=== PATIENT | male | born 1975 | race Asian ===

== ENCOUNTER 2021-04-13 10:16 | Emergency (ER) | payer OTHER, SELFPAY ==
--- NOTE | ~2021-04-13 | XR_ITS ---
EXAMINATION: XR chest 2V DATE: 04/13/2021 10:56 INDICATION: Dyspnea. TECHNIQUE: Frontal and lateral views of the chest were obtained on 3 radiographs. COMPARISON: None. FINDINGS: The chest demonstrates clear lungs without pneumonia, pleural effusion, or pneumothorax. Th e heart size is normal. IMPRESSION: 1. No acute cardiopulmonary disease. Reviewed, dictated and finalized at location B.
[2021-04-13 10:20] VITALS: BP 92/42; PULSE 100; RESP 24; TEMP 37.1; O2SAT 100
--- NOTE | 2021-04-13 10:23 | ED.ALLEREA ---
HPI - Allergic Reaction General Chief complaint: Allergic Reaction Stated complaint: ambulance Time Seen by Provider: 04/13/21 10:19 Source: patient and EMS Mode of arrival: EMS Limitations: no limitations History of Present Illness HPI narrative: 45-year-old previously well man brought to the emergency department by EMS after he had difficulty breathing, mouth and throat swelling, rash and itching after being stung by a wasp. This recurred within the last 30 minutes. He denies prior similar reactions however his right hand swelled up the last time he was stung by wasp. complaint: allergic reaction, hives and facial swelling Onset (ago): minute(s) (30) Exposure: insect bite (Wasp sting) Symptoms: rash, itching, facial swelling, lip swelling and difficulty breathing Severity: severe Treatment prior to arrival: epinephrine (EpiPen administered by EMS @1008) Previous Allergic Reaction History: none Related Data Allergies Allergy/AdvReac Type Severity Reaction Status Date / Time venom-wasp Allergy Hives Verified 04/13/21 10:28 Review of Systems Review of Systems: All systems reviewed & are unremarkable except as noted in HPI and below Constitutional: Constitutional: Denies chills and Denies fever(s) Eyes: Eyes: Denies change in vision and Denies photophobia ENT: Denies nasal congestion and Denies sore throat Cardiovascular: Cardiovascular: Denies chest pain and Denies radiating jaw, neck or arm pain Respiratory: Respiratory: Denies cough and Reports dyspnea Gastrointestinal: Gastrointestinal: Denies abdominal pain, Denies nausea and Denies vomiting Musculoskeletal: Musculoskeletal: Denies arthralgias and Denies joint swelling Integumentary/Breasts: Skin/Breast: Reports pruritus, Reports erythema and Reports rash Neurologic: Denies vertigo, Denies dizziness and Denies syncope Hematologic/Lymphatic: Hematologic/Lymphatic: Denies easy bleeding and Denies easy bruising Allergic/Immunologic: Allergic/Immunologic: Reports lip swelling, Reports throat swelling and Reports tongue swelling PMF Social History Social History (Updated 04/13/21 @ 10:26 by Dileep Jalloh MD) Smoking status: Current every day smoker Alcohol intake: current Substance use: never Exam Const: General: healthy appearing and alert Orientation/consciousness: patient oriented x3 Limitations: no limitations Other: Mild acute distress. HENMT: Head: normal to inspection Face and sinus: normal facial exam Mouth: Yes moist mucous membranes Other: Mild uvular and posterior pharyngeal erythema and swelling. Minimal lip swelling. Eyes: Conjunctivae: conjunctivae normal Pupils: Equal, round and reactive pupils present EOM: EOMs intact bilaterally Neck: Neck: normal visual inspection and no lymphadenopathy Resp: Effort & Inspection: normal respiratory effort and not labored Auscultation: clear to auscultation bilaterally, no rales, no rhonchi and no wheezes Cardio: Rate: regular rate Rhythm: regular rhythm Heart sounds: no murmurs GI: GI Palp: Yes Soft to palpation and No Tenderness to palpation present (GI) Skin: General skin exam: no jaundice and no pallor Other: Urticarial lesions on all limbs and trunk. Mild edema. Neuro: General: patient oriented x3, moves all extremities, no focal motor deficits and CN's II-XI intact bilaterally Speech: normal speech Extrem: General: normal to inspection and edema (Mild diffuse) Psych: Appearance: grossly normal and well kempt Affect: Anxious affect present Attitude: cooperative Thought content: Yes Normal thought content present Course Vital Signs Vital signs: Vital Signs Temperature 37.1 C 04/13/21 10:20 Pulse Rate 100 04/13/21 10:20 Respiratory Rate 24 H 04/13/21 10:20 Blood Pressure 92/42 L 04/13/21 10:20 Pulse Oximetry 100 04/13/21 10:20 Temperature 37.1 C 04/13/21 10:20 Pulse Rate 60 04/13/21 12:18 Respiratory Rate 24 H 04/13/21 10:20 Blood P
[2021-04-13] MEDS: SODIUM CHLORIDE 0.9% IV 1,000 ML 999 ML IV CONT (10:30)
[2021-04-13] MEDS: methylPREDNISolone SOD SUCC 125 MG VIAL IV PUSH (10:31)
[2021-04-13] MEDS: diphenhydrAMINE HCl INJ 50 MG/ML VIAL 25 MG IV PUSH (11:23)
[2021-04-13 12:18] VITALS: BP 111/73; PULSE 60; O2SAT 100
[2021-04-13 13:45] VITALS: BP 105/69; O2SAT 100
== END 2021-04-13 13:45 | disposition home or self-care (01) ==
PROVIDERS: Emergency Provider Emergency Medicine
DX: T78.2XXA Anaphylactic shock, unspecified, initial encounter (principal)
CPT/HCPCS: 71046; 96361; 96374; 96375; 99283; 99284; J1200; J2930; J7030

== ENCOUNTER 2022-12-30 21:27 | Emergency (ER) | payer OTHER, SELFPAY ==
--- NOTE | ~2022-12-30 | XR_ITS ---
EXAM: XR thoracolumbar DATE: 12/30/2022 22:03 HISTORY: MIDDLE TO LOWER BACK PAIN ONE MONTH. INTERMITTENT NAUSEA NKI . COMPARISON: None available. FINDINGS: Mild thoracolumbar scoliosis. 5 nonrib-bearing lumbar-type vertebral bodies. Pedicles inta ct. 3 mm retrolisthesis at L4-5. Mild anterior wedge deformity at T12, likely physiologic. Multilevel disc space narrowing and marginal osteophytosis, most pronounced at L4-5. Multilevel lower lumbar fa cet sclerosis and hypertrophy. No fracture or dislocation. IMPRESSION: Grade 1 retrolisthesis at L4-5. Moderate degenerative disease at L4-5. Multilevel lower l umbar facet arthropathy. Reviewed, dictated and finalized at location K. IMPRESSION: Grade 1 retrolisthesis at L4-5. Moderate degenerative disease at L4 -5. Multilevel lower lumbar facet arthropathy.
[2022-12-30 21:30] VITALS: BP 153/78; PULSE 88; RESP 16; TEMP 36.3; O2SAT 97
--- NOTE | 2022-12-30 21:41 | ED.GENADULT ---
HPI - General Adult General Chief complaint: Unspecified Stated complaint: Back Pain/Nausea Source: patient and family Mode of arrival: ambulatory Limitations: no limitations History of Present Illness HPI narrative: Is a 47-year-old gentleman with no significant past medical history presents with some mid back pain has been going on for the last 2 to 3 months with no radiation of his pain is tender with movement and palpation in the mid and lower back in the paravertebral areas with palpation with no sciatica no numbness in his arms or legs no neck pain no headache no blurry vision no neurological deficits. He has no nausea vomiting no blurry vision no known injury. Onset (ago): month(s) Severity: moderate Severity scale (1-10): 5 Related Data Allergies Allergy/AdvReac Type Severity Reaction Status Date / Time venom-wasp Allergy Hives Verified 04/13/21 10:28 Review of Systems Review of Systems: All systems reviewed & are unremarkable except as noted in HPI and below PMFSH Past Medical History Medical History Patient denies medical problems Social History Social History Smoking status: Current every day smoker Alcohol intake: current Substance use: never Exam Const: General: cooperative, healthy appearing, comfortable and no acute distress HENMT: Head: normal to inspection Face and sinus: normal facial exam Mouth: Yes Normal oral and palatal mucosa present Eyes: General: appearance normal, both eyes and all related structures Visual Schafer: normal visual schafer by confrontation Neck: Neck: normal visual inspection, full ROM and no lymphadenopathy Chest: Chest palpation & inspection: normal inspection of the chest Resp: Effort & Inspection: normal respiratory effort and able to speak in complete sentences Cardio: Jugular venous distension: no JVD Palpation: normal PMI Rate: regular rate Rhythm: regular rhythm GI: Inspection: normal to inspection : General: Yes bimanual renal exam normal bilaterally Back/Spine/Pelvis: Thoracic/Lumbar Spine: pain with thoraco-lumbar ROM Skin: General skin exam: normal color and no rashes or lesions noted Neuro: General: oriented to person, oriented to place and oriented to time Extrem: General: normal to inspection, full ROM and capillary refill normal Psych: Appearance: grossly normal Mental Status: mental status grossly normal Course Course Emergency Course: patient received IM Toradol and IM muscle relaxer x-rays were performed and reviewed. Vital Signs Vital signs: Vital Signs Temperature 36.3 C L 12/30/22 21:30 Pulse Rate 88 12/30/22 21:30 Respiratory Rate 16 12/30/22 21:30 Blood Pressure 153/78 H 12/30/22 21:30 Pulse Oximetry 97 12/30/22 21:30 Oxygen Delivery Room Air 12/30/22 21:30 Temperature 36.3 C L 12/30/22 21:30 Pulse Rate 88 12/30/22 21:30 Respiratory Rate 16 12/30/22 21:30 Blood Pressure 153/78 H 12/30/22 21:30 Pulse Oximetry 97 12/30/22 21:30 Oxygen Delivery Room Air 12/30/22 21:30 Medical Decision Making Vital Signs Vital Signs: Vital Signs Temperature 36.3 C L 12/30/22 21:30 Pulse Rate 88 12/30/22 21:30 Respiratory Rate 16 12/30/22 21:30 Blood Pressure 153/78 H 12/30/22 21:30 Pulse Oximetry 97 12/30/22 21:30 Oxygen Delivery Room Air 12/30/22 21:30 Temperature 36.3 C L 12/30/22 21:30 Pulse Rate 88 12/30/22 21:30 Respiratory Rate 16 12/30/22 21:30 Blood Pressure 153/78 H 12/30/22 21:30 Pulse Oximetry 97 12/30/22 21:30 Oxygen Delivery Room Air 12/30/22 21:30 Critical Care Time Critical Care Time Critical Care Time: No Discharge Plan Discharge Clinical Impression: Back strain Qualifiers: Encounter type: initial encounter Qualified Code(s): S39.012A - Strain of muscle, fascia and tendon of lower back, initial encoun
[2022-12-30] MEDS: KETOROLAC (*BKC) 60 MG/2 ML VIAL IM (21:50)
[2022-12-30] MEDS: ORPHENADRINE CITRATE 30 MG/ML 2 ML VIAL 60 MG IM (21:50)
[2022-12-30 22:25] VITALS: BP 144/80; PULSE 80; RESP 18; TEMP 36.6; O2SAT 100
== END 2022-12-30 22:27 | disposition home or self-care (01) ==
PROVIDERS: Emergency Provider Emergency Medicine; PCP Physician Assistant
DX: S39.012A Strain of muscle, fascia and tendon of lower back, initial encounter (principal); M47.816 Spondylosis without myelopathy or radiculopathy, lumbar region; F17.200 Nicotine dependence, unspecified, uncomplicated; X58.XXXA Exposure to other specified factors, initial encounter
CPT/HCPCS: 72080; 96372; 99284; J1885; J2360

== ENCOUNTER 2023-02-22 18:59 | Emergency (ER) | payer OTHER, SELFPAY ==
[2023-02-22 19:02] VITALS: BP 109/63; PULSE 81; RESP 20; TEMP 36.6; O2SAT 100
--- NOTE | 2023-02-22 19:23 | ED.SKABFB ---
HPI - Skin/Abscess/Foreign Bdy General Chief complaint: Skin/Abscess/Foreign Body Stated complaint: allergic reaction Time Seen by Provider: 02/22/23 19:23 Source: patient Mode of arrival: ambulatory Limitations: no limitations History of Present Illness HPI narrative: 47-year-old male, smoker presents with a 1 day history of -- itchy maculopapular/ nodule or rash in his groin and upper legs. No shortness of breath. No throat swelling. No lightheadedness. No new medications. He had shrimp yesterday. patient was out fishing yesterday. He has had prior allergic rash. complaint: rash Onset (ago): day(s) ( One day) Tetanus up to date: no Location: generalized ( rashes noted in groin and upper thigh) Severity: mild Quality: pruritic Pain Consistency: constant Relieving factors: none Exacerbating factors: none Associated symptoms: denies other symptoms Treatments prior to arrival: Benadryl Related Data Allergies Allergy/AdvReac Type Severity Reaction Status Date / Time venom-wasp Allergy Hives Verified 04/13/21 10:28 Review of Systems Review of Systems: All systems reviewed & are unremarkable except as noted in HPI and below Respiratory: Respiratory: Reports as per HPI and Reports no additional respiratory complaints Gastrointestinal: Gastrointestinal: Reports as per HPI and Reports no additional gastrointestinal complaints Integumentary/Breasts: Skin/Breast: Reports system reviewed and no additional complaints, except as docu Comments: macular papular and nodule a rash in his groin and upper thighs PMFSH Past Medical History Medical History Patient denies medical problems Social History Social History Smoking status: Current every day smoker Alcohol intake: current Substance use: never Exam Const: General: healthy appearing and no acute distress Nutritional Appearance: well nourished Orientation/consciousness: patient oriented x3 Limitations: no limitations HENMT: Head: normal to inspection Ears: external ears normal Face/Nose/Sinus: Normal external nose present Face and sinus: normal facial exam Mouth: Yes Normal oral and palatal mucosa present Throat: posterior oropharynx normal Eyes: Conjunctivae: conjunctivae normal Pupils: Equal, round and reactive pupils present Neck: Neck: normal visual inspection, no lymphadenopathy and no meningeal signs Chest: Chest palpation & inspection: normal inspection of the chest Resp: Effort & Inspection: normal respiratory effort Auscultation: clear to auscultation bilaterally Cardio: Rate: regular rate Rhythm: regular rhythm GI: GI Palp: Yes Soft to palpation Auscultation: normal bowel sounds : Male General Exam: Yes normal external exam Back/Spine/Pelvis: Back: no CVA tenderness Skin: General skin exam: normal color Other: maculopapular/ Circular raised erythematous( measuring 1-2 cm) rash in his groin and upper thighs. Neuro: General: patient oriented x3, moves all extremities, no meningeal signs, no focal motor deficits and CN's II-XI intact bilaterally Cranial nerves: Yes Nystagmus not present Speech: normal speech Gait exam (Neuro): Normal gait present Extrem: General: normal to inspection Psych: Mental Status: mental status grossly normal Affect: normal affect Attitude: cooperative Course Course Emergency Course: allergic reaction-- possibly to shrimp Vital Signs Vital signs: Vital Signs Temperature 36.6 C 02/22/23 19:02 Pulse Rate 81 02/22/23 19:02 Respiratory Rate 20 02/22/23 19:02 Blood Pressure 109/63 02/22/23 19:02 Pulse Oximetry 100 02/22/23 19:02 Oxygen Delivery Room Air 02/22/23 19:02 Temperature 36.6 C 02/22/23 19:02 Pulse Rate 81 02/22/23 19:02 Respiratory Rate 20 02/22/23 19:02 Blood Pressure 109/63 02/22/23 19:02 Pulse Oximetry 100 0
[2023-02-22] MEDS: FAMOTIDINE 20 MG TABLET PO (19:35)
[2023-02-22] MEDS: methylPREDNISolone SOD SUCC 125 MG VIAL IM (19:35)
[2023-02-22] MEDS: hydrOXYzine HCL 25 MG TABLET PO (19:35)
[2023-02-22] MEDS: TETANUS,DIPHTHERIA,AC PERTUSSIS ADULT 0.5 ML (ADACEL) IM (19:45)
[2023-02-22 20:35] VITALS: BP 128/85; PULSE 71; RESP 16; TEMP 36.9; O2SAT 100
== END 2023-02-22 20:37 | disposition home or self-care (01) ==
LOC: CHSED 19:50
PROVIDERS: Emergency Provider Internal Medicine Critical Care Medicine; PCP Physician Assistant
DX: T78.40XA Allergy, unspecified, initial encounter (principal); F17.200 Nicotine dependence, unspecified, uncomplicated; Z23 Encounter for immunization
CPT/HCPCS: 90471; 90715; 96372; 99283; A9270; J2930

== ENCOUNTER 2023-10-23 14:49 | Emergency (ER) | payer OTHER, SELFPAY ==
[2023-10-23 15:14] VITALS: BP 110/64; PULSE 72; RESP 18; TEMP 36.6; O2SAT 99
--- NOTE | 2023-10-23 15:54 | ED.SKABFB ---
HPI - Skin/Abscess/Foreign Bdy General Chief complaint: Skin/Abscess/Foreign Body Stated complaint: breaking out in hives Time Seen by Provider: 10/23/23 15:54 Source: patient, RN notes reviewed and old records reviewed Mode of arrival: ambulatory Limitations: no limitations History of Present Illness HPI narrative: 48 year old male who presents to Care with complaints of rash on arms and chest and back that has increased over the past 2 days after eating shrimp that was not deveined. Patient states he has been taking Benadryl every 4 hours without improvement in his symptoms. Patient denies any shortness of breath no difficulties with swallowing or breathing. Patient reports he has had a rash from shrimp in the past, denies any new medications, laundry product, or any body products. Patient reports that no one else in household has rash. MD complaint: rash and other (Reaction to shrimp) Onset (ago): day(s) (2) Severity: mild Treatments prior to arrival: other (Benadryl) Related Data Allergies Allergy/AdvReac Type Severity Reaction Status Date / Time venom-wasp Allergy Hives Verified 10/23/23 18:14 Review of Systems Review of Systems: CONSTITUTIONAL: Denies fever, chills, or sweats. EYES: Denies visual changes, redness, or discharge. ENT: Denies rhinorrhea, congestion, sore throat, or otalgia. CARDIOVASCULAR: Denies chest pain, palpitations, or edema. RESPIRATORY: Denies cough or dyspnea. GASTROINTESTINAL: Denies abdominal pain, nausea, vomiting, or diarrhea. GENITOURINARY: Denies dysuria or hematuria. SKIN: reports rash on arms chest and back with itching. MUSCULOSKELETAL: Denies back pain, joint pain, or myalgia. NEUROLOGIC: Denies headache, numbness, or weakness. PSYCHIATRIC: Denies anxiety or depression. All systems reviewed & are unremarkable except as noted in HPI and below PMFSH Past Medical History Medical History Patient denies medical problems Social History Social History Smoking status: Current every day smoker Tobacco type: e-cigarettes/vaping Additional smoking assessment comments: has vaped for past 1 year, prior to that 1 ppd Alcohol intake: current Substance use: never Living arrangements: with family Gender identity (if verbalized by the patient): Male Comments At time of signature, agree with nursing past medical, surgical, social and family history. There is no relevant family history pertinent to the presenting complaint Exam Narrative: GENERAL: Well-appearing, well-nourished, and in no acute distress. HEAD: Normocephalic, atraumatic. EYES: PERRLA and EOMI. ENT: Nares clear, no rhinorrhea or epistaxis. Mucous membranes moist. NECK: Supple.no lymphadenopathy CHEST: Clear to auscultation. No respiratory distress.no cough or any wheezing SAO2 99% on room air HEART: Regular rate and rhythm. No murmur heard. Normal peripheral pulses. ABDOMEN: Soft, nontender, nondistended, normal active bowel sounds. EXTREMITIES: Normal range of motion. No edema. SKIN: Warm, dry, fine red rash noted on arms chest and back which is itchy NEURO: No focal deficits. Alert and oriented x3. Course Course Emergency Course: Patient is aware of diagnosis, understands and agrees to treatment plan.? Anticipatory guidance given.? Patient agrees to follow-up as directed and is aware of reasons to seek care at the emergency department. Portions of this record may have been created with voice recognition software Level of Care: Express Care Visit Vital Signs Vital signs: Vital Signs Temperature 36.6 C 10/23/23 15:14 Pulse Rate 72 10/23/23 15:14 Respiratory Rate 18 10/23/23 15:14 Blood Pressure 110/64 10/23/23 15:14 Pulse Oximetry 99 10/23/23 15:14 Temperature 36.6 C 10/23/23 15:14 Pulse Rate 72 10/23/23 15:14 Respiratory Rate 18 10/23/23 15:14 Blood Pressure
== END 2023-10-23 16:10 | disposition home or self-care (01) ==
PROVIDERS: Emergency Provider Registered Nurse; PCP Physician Assistant
DX: T78.1XXA Other adverse food reactions, not elsewhere classified, initial encounter (principal); L27.2 Dermatitis due to ingested food; F17.290 Nicotine dependence, other tobacco product, uncomplicated
CPT/HCPCS: 99213; G0463

== ENCOUNTER 2024-03-23 08:49 | Emergency (ER) | payer OTHER, SELFPAY ==
[2024-03-23 08:56] VITALS: BP 137/88; PULSE 76; RESP 16; TEMP 35.9; O2SAT 100
--- NOTE | 2024-03-23 08:58 | ED.SKABFB ---
HPI - Skin/Abscess/Foreign Bdy General Chief complaint: Skin/Abscess/Foreign Body Stated complaint: wasp sting/left hand Time Seen by Provider: 03/23/24 08:58 Source: patient, RN notes reviewed and old records reviewed Mode of arrival: ambulatory Limitations: no limitations History of Present Illness HPI narrative: 48-year-old male presents to the [facility] with complaints a wasp sting. Was stung on radial aspect of the wrist approximately 3 cm below the natural wrist. Swelling noted. No erythema. Patient reports that he takes Benadryl it does get better. Has been applying ice and it does get better. Onset (ago): day(s) (1) Treatments prior to arrival: other (Ice) Related Data Allergies Allergy/AdvReac Type Severity Reaction Status Date / Time venom-wasp Allergy Hives Verified 10/23/23 18:14 Review of Systems Review of Systems: All systems reviewed & are unremarkable except as noted in HPI and below Constitutional: Constitutional: Reports no additional constitutional complaints Eyes: Eyes: Reports no additional eye complaints ENT: Reports system reviewed and no additional complaints, except as documented Cardiovascular: Cardiovascular: Reports no additional cardiovascular complaints, Denies chest pain and Denies dyspnea Respiratory: Respiratory: Reports no additional respiratory complaints, Denies chest congestion, Denies cough and Denies dyspnea Gastrointestinal: Gastrointestinal: Reports no additional gastrointestinal complaints, Denies abdominal pain, Denies nausea and Denies vomiting Musculoskeletal: Musculoskeletal: Reports no additional musculoskeletal complaints Integumentary/Breasts: Skin/Breast: Reports as per HPI Neurologic: Reports system reviewed and no additional complaints, except as documented Psychiatric: Psychiatric: Reports no additional psychiatric complaints Allergic/Immunologic: Allergic/Immunologic: Reports no additional allergic/immunologic complaints [facility] Past Medical History Medical History Patient denies medical problems Social History Social History Smoking status: Current every day smoker Tobacco type: e-cigarettes/vaping Additional smoking assessment comments: has vaped for past 1 year, prior to that 1 ppd Alcohol intake: current Substance use: never Living arrangements: with family Gender identity (if verbalized by the patient): Male Comments At the time of my signature, I reviewed and agree with the nursing past medical, surgical, social, and family history. There is no relevant family history pertinent to the patient complaint. Exam Const: General: cooperative, healthy appearing, comfortable, no acute distress, well developed, alert and well nourished Nutritional Appearance: well nourished Orientation/consciousness: patient oriented x3 Limitations: no limitations HENMT: Head: normal to inspection Ears: hearing grossly normal bilaterally and external ears normal Face/Nose/Sinus: Normal external nose present, Normal nares present, Normal nasal mucous membranes and turbinates present, normal facial exam and face symmetric Face and sinus: normal facial exam and face symmetric Mouth: Yes Normal oral and palatal mucosa present, Yes lip normal and Yes tongue normal Throat: posterior oropharynx normal Eyes: General: appearance normal, both eyes and all related structures Alignment and Position: alignment normal Periorbital: periorbital findings normal Neck: Neck: normal visual inspection, full ROM, no lymphadenopathy and no meningeal signs Chest: Chest palpation & inspection: normal inspection of the chest Resp: Effort & Inspection: normal respiratory effort and able to speak in complete sentences Auscultation: clear to auscultation bilaterally, no crackles, no rales, no rhonchi and no wheezes Cardio: Rate: regular rate Rhythm: regular rhythm Skin:
== END 2024-03-23 09:13 | disposition home or self-care (01) ==
PROVIDERS: Emergency Provider Nurse Practitioner; PCP Physician Assistant
DX: T63.461A Toxic effect of venom of wasps, accidental (unintentional), initial encounter (principal); F17.290 Nicotine dependence, other tobacco product, uncomplicated
CPT/HCPCS: 99213; G0463